=== PATIENT | male | born 1935 | race Caucasian/White ===

== ENCOUNTER → 2019-12-23 10:53 | Outpatient (CLI) | payer MEDICARE, SELFPAY ==
--- NOTE | 2019-12-23 10:54 | CA_ITS ---
APPROVED REPORT EXAM: Comprehensive 2D, Doppler, and color-flow Echocardiogram Corporate Relations Manager: Franchesca East RVT Ht: 5 ft 11 in Wt: 181lbs BSA: 2.02 BP: 116/74 mmHg Indications: PVC'S,PRE-OP HERNIA REPAIR 2D Dimensions LVOT 1.45 cm (M/F) 1.5-2.5 M-Mode Dimensions RVDd 2.41 cm (0.9-2.6) LVDd 4.79 cm (3.5-5.7) LVDs 3.42 cm (3.5-5.7) IVSd 1.81 cm (0.6-1.1) PWd 0.64 cm (0.6-1.1) EF (Teich) 55.00% FS 28.60% EDV (Teich) 107.00 mL ESV (Teich) 48.10 mL LV Diastology E/A Ratio 0.68 Aortic Valve LVOT Max 163.00 (70-110 cm/s) LVOT VTI 43.99 cm AO VTI 79.03 (18-25 cm) Mitral Valve MV A Velocity 87.00 (40-130 cm/s) MV PHT 123.00 ms Left Ventricle Left atrium is mildly enlarged, left ventricle is normal size, mild concentric left ventricular hypertrophy, visually estimated ejection fraction 50%, endocardial surfaces are poorly visualized, there appears to be hypokinesis involving the inferior wall. Grade 1 diastolic dysfunction seen with tissue Doppler evidence of raise left atrial pressure. Right Ventricle Right atrium right ventricular normal size and contractility. Aortic Valve Aortic valve is thickened and calcified, there is no aortic stenosis, there is mild aortic insufficiency. Mitral Valve Mitral valve leaflets are minimally thickened, there is mild mitral annular calcification present, mitral inflow velocities not suggestive of significant mitral stenosis, there is moderate mitral regurgitation. Tricuspid Valve Tricuspid valve grossly normal, there is mild tricuspid regurgitation, tricuspid and jet velocity is inadequate for calculation of the right ventricular systolic pressure. Pulmonic Valve Pulmonic valve is poorly visualized. Great Vessels Aortic root is normal size. Pericardium No significant pericardial effusion noted. Conclusion 1. Mildly enlarged left atrium, normal left ventricular size, mild concentric left ventricular hypertrophy, visually estimated ejection fraction 50% with segmental wall motion abnormality described above, grade 1 diastolic dysfunction seen with tissue Doppler evidence of raise left atrial pressure. 2. Thickened and calcified aortic valve without aortic stenosis, there is mild aortic insufficiency. 3. Thickened and calcified mitral valve without significant mitral inflow obstruction, there is moderate mitral regurgitation. 4. Mild tricuspid regurgitation 5. No significant pericardial effusion noted. Electronically signed by : Zechariah López, 12/24/2019 13:37:14
--- NOTE | 2019-12-23 10:54 | CA_ITS ---
APPROVED REPORT Exam: Pharmacologic Technologist: Julissa Jacome, Ht: 5 ft 11 in Wt: 180 lbs BSA: 2.02 m2 HR: 56 bpm BP: 126/66 mmHg Rhythm: NSR,EARLY REPOLARIZATION CHANGES Medical History Medications: TAMSULOSIN,,,,, Stress Test Details Test: LEXISCAN HR Resting HR: 59 bpm Max Heart Rate (APMHR): 137 bpm Max HR Achieved: 79 bpm Target HR (85% APMHR): 116 bpm % of APMHR: 57 Recovery HR: 72 bpm BP Resting BP: 126.0/66.0 mmHg Max BP: 143.0/54.0 mmHg Recovery BP: 143.0/54.0 mmHg ECG Resting ECG: NSR,EARLY REPOLARIZATION CHANGES Clinical Exercise duration: 04:01 min Highest Stage Achieved: Exercise capacity: 1.0 METs Stress ECG Conclusion DURING INFUSION OF LEXISCAN PATIENT HAD NO SYMPTOMS. OCCASIONAL PVC. NO SIGNIFICANT ST-T CHANGES. UNREMARKABLE LEXISCAN STRESS. MYOVIEW IMAGES REPORTED SEPARATELY. Test Summary REST . . . . . . . Sitting REST 11:44 . . 59 . 126/ 66 . . Stage 1 . . . . . . . Cardiolite injected Stage 1 01:00 . . 66 . . . . Stage 2 01:00 . . 72 . 133/ 52 . . Stage 3 01:00 . . 72 . 142/ 41 . . Stage 4 01:00 . . 72 . 139/ 43 . . Stage 4 01:01 . . 72 . 139/ 43 . Stop exercise at 04:01 RECOVERY 01:00 . . 71 . 143/ 54 . . RECOVERY 02:00 . . 69 . 143/ 54 . . RECOVERY 03:00 . . 66 . 143/ 63 . . RECOVERY 03:27 . . 66 . 141/ 66 . . Electronically signed by : Zechariah López, 12/24/2019 09:54:55
--- NOTE | 2019-12-23 10:54 | NM_ITS ---
APPROVED REPORT Exam: Nuclear Stress Test Indication: PRE-OP, VENTRICULAR PREMATURE DEPOLARIZATION Patient Location: Outpatient Stress Tech: Sammi Pfeiffer NM Tech:Nita Funk, ARRT, RT (R)(N) Ht: 5 ft 11 in Wt: 180 lbs HR: 56 bpm BP: 126/66 mmHg BSA: 2.02 m2 BMI: 25.1 History: PRE-OP, VENTRICULAR PREMATURE DEPOLARIZATION Procedure: Patient received a 0.4 mg of intravenous Lexiscan, resting heart rate 56 bpm, resting blood pressure 126/66 mmHg, with Lexiscan maximum heart rate achived was 98 bpm which is Less than 85 % of the maximum predicted heart rate and blood pressure was 133/52 mmHg. With Lexiscan, patient denied any complaint of chest pain. Electrocardiogram Resting electrocardiogram showed sinus rhythm, with Lexiscan there is less than 1.[address] segment depression noted from the baseline EKG. The EKG portion of the Lexiscan Myoview is nondiagnostic. Cardiac Stress and Resting SPECT Images: Cardiac Stress and Resting SPECT images were obtained using technetium 99m Myoview 32.0 mCi stress and 10.56 mCi at rest. Gated SPECT with analysis of segmental wall motion and calculation of the ejection fraction also done. Cardiac stress and resting SPECT images show partial reversible defect involving the lateral, inferior and posterior wall suggestive of mixed ischemia and scar, computer derived ejection fraction is 52% with moderate hypokinesis involving the lateral, inferior and posterior wall. Right ventricle is normal size and contractility. Conclusion: 1. The EKG portion of the Lexiscan Myoview is nondiagnostic. 2. Scintigraphic evidence of mixed ischemia and scar involving the lateral, inferior and posterior wall as described above, computer derived ejection fraction is 52% with segmental wall motion abnormality described above, right ventricle is normal size and contractility. 3. Abnormal Lexiscan Myoview study. Electronically signed by : Zechariah López, 12/24/2019 10:21:50
== END ==
PROVIDERS: PCP Family Medicine; Visit Provider Urology
DX: I49.3 Ventricular premature depolarization (principal); K46.9 Unspecified abdominal hernia without obstruction or gangrene; Z01.810 Encounter for preprocedural cardiovascular examination; Z87.81 Personal history of (healed) traumatic fracture
CPT/HCPCS: 78452; 93017; 93306; A9502; J2785

== ENCOUNTER 2020-01-04 08:25 | Day surgery (SDC) | payer MEDICARE, SELFPAY ==
[2020-01-04] VITALS (13 sets, daily range): BP systolic 124–172; BP diastolic 70–83; PULSE 49–72; RESP 16–18; TEMP 36.6; O2SAT 93–100; BMI 25.5
--- NOTE | 2020-01-04 | IR_ITS ---
APPROVED REPORT PROCEDURES Left heart catheterization Selective coronary angiogram Drug-eluting stent deployment to the distal left main artery extending the proximal dominant circumflex artery INDICATION Coronary artery disease, High risk abnormal Myoview Informed consent was obtained prior to the procedure. COMPLICATIONS None Estimated Blood Loss: less than 10 ml TECHNIQUE One percent lidocaine used to anesthetize the right anterior aspect of the wrist. The right radial artery was accessed via the Seldinger technique. A 6 Tajik sheath was placed in the right radial artery. 2.5 mg of verapamil, 800 mcg of nitroglycerin, 1mg Lidocaine and 5000 U Heparin were given through the arterial sheath. The trap catheter was also used to perform left heart catheterization, left ventriculogram and selective coronary angiogram. At the end of the diagnostic angiogram therapeutic heparin was administered giving a therapeutic ACT and and I [place] left guide catheter was used to intubate the left main artery. A Choice PT wire was used to traverse the stenosis in the circumflex artery and a 3.5 x 15 mm resolute radha stent was deployed at 20 jesusita reducing the stenosis. A 4 mm x 12 mm balloon was then deployed at 24 jesusita to post dilate. MILDRED-3 flow was present before and after the procedure. There was no angiographic encroachment upon the LAD therefore at the end of the procedure the apparatus was removed the sheath was removed good hemostasis was achieved using TR banding patient was transferred to the postop holding area stable condition ANGIOGRAPHIC RESULTS The left main artery Has a distal 30% stenosis The left anterior descending artery Has proximal 10 to 20% stenoses mid vessel 10 to 20% stenoses The circumflex artery Is a large dominant vessel and has an ostial 80% stenosis with mild mid vessel 30% stenoses The right coronary artery Is nondominant yet still a large vessel with proximal 30 to 40% stenoses distal 40 to 50% stenoses with additional 30 to 40% in the terminal large marginal branch The HUDSON ventriculogram reveals Not obtained The left ventricular end-diastolic pressure 10 mmHg IMPRESSION Coronary disease as described above Successful stenting of the distal left main artery extending into the proximal dominant circumflex artery severe disease reduced to 0% with one drug-eluting stent Persistent moderate stenosis in the large nondominant right coronary Normal left ventricular end-diastolic pressure PLAN 1. Brilinta and aspirin 2. LDL less than 55 3. Risk factor modification 4. Avoidance of tobacco products 5. Cardiac rehabilitation Electronically signed by : Charli Burns, 01/04/2020 11:05:23
[2020-01-04 09:14] LABS: Chloride 102 mmol/L (98-107); Potassium 4.7 mmoL/L (3.5-5.1); Sodium 138 mmol/L (136-145)
[2020-01-04 09:15] LABS: Basophils % 0.3 % (0.1-2.0); Eosinophils # 0.3 K/mm3 (0.0-0.4); Eosinophils % 6.4 % (0.1-12.0); Hematocrit 46.7 % (42.0-52.0); Hemoglobin 16.3 g/dL (14.1-18.0); Lymphocytes # 1.2 K/mm3 (0.7-4.5); Lymphocytes % 28.4 % (10-50); Mean Corpuscular HGB Conc 34.9 g/dL (31.8-35.4); Mean Corpuscular Hemoglobin 31.6 pg (27.0-31.2); Mean Corpuscular Volume 90.7 fl (80-94); Mean Platelet Volume 7.9 fl (7.4-10.4); Monocytes # 0.4 K/mm3 (0.1-1.0); Monocytes % 8.9 % (1.7-9.3); Neutrophils # 2.4 K/mm3 (1.8-7.8); Neutrophils % 55.9 % (37.0-80.0); Platelet Count 161 K/mm3 (142-424); Red Blood Count 5.15 M/mm3 (4.60-6.20); Red Cell Distribution Width 13.7 % (11.5-17.5); White Blood Count 4.3 K/mm3 (4.8-10.8)
[2020-01-04 09:17] LABS: Anion Gap 12.7 mEq/L (5-15); Blood Urea Nitrogen 16 mg/dl (9-20); Calcium 9.5 mg/dl (8.4-10.2); Carbon Dioxide 28 mmol/L (22.0-30.0); Creatinine Clearance Estimated 41 mL/min (50-200); Estimated Glomerular Filt Rate 41 ml/min (>60); GFR (African American) 50 ML/MIN (>60); Glucose 106 mg/dl (74-100)
--- NOTE | 2020-01-04 14:24 | HMH.PHACLD ---
Fdeerico Damian has received discharge medication counseling on the following medications: PATIENT CURRENTLY ON FLOMAX 0.4 MG HS. ADDING BRILINTA 90 MG BID, ASPIRIN 81 MG DAILY, ATORVASTATIN 40 MG HS, AND BISOPROLOL 5 MG DAILY. PATIENT ALREADY HAS BRILINTA 90 MG BID #60 AT BEDSIDE. RECEIVED FROM CLINIC PHARMACY.
[2020-04-12 09:35] LABS: CATHL Activated Clotting Time 315 SEC (74-125)
== END 2020-01-04 15:05 | disposition home or self-care (01) ==
LOC: CATHLAB 08:26
PROVIDERS: PCP Family Medicine; Visit Provider Internal Medicine
DX: I25.10 Atherosclerotic heart disease of native coronary artery without angina pectoris (principal); I49.3 Ventricular premature depolarization; Z79.899 Other long term (current) drug therapy; K40.20 Bilateral inguinal hernia, without obstruction or gangrene, not specified as recurrent
CPT/HCPCS: 80048; 85025; 85347; 92928; 93458; 99152; C1725; C1769; C1874; C9600; J1644; Q9967

== ENCOUNTER → 2020-01-19 09:19 | Outpatient (CLI) | payer MEDICARE, SELFPAY ==
[2020-01-20 13:32] LABS: CEA 3.3 ng/mL (0.0-4.7)
== END ==
PROVIDERS: Visit Provider Colon & Rectal Surgery
DX: C20 Malignant neoplasm of rectum (principal)
CPT/HCPCS: 36415; 82378

== ENCOUNTER → 2020-07-11 11:15 | Outpatient (CLI) | payer MEDICARE, SELFPAY ==
[2020-07-11 11:37] LABS: Basophils % 0.8 % (0.1-2.0); Eosinophils # 0.2 K/mm3 (0.0-0.4); Eosinophils % 4.1 % (0.1-12.0); Hematocrit 53.2 % (42.0-52.0); Hemoglobin 17.8 g/dL (14.1-18.0); Lymphocytes # 1.1 K/mm3 (0.7-4.5); Lymphocytes % 22.8 % (10-50); Mean Corpuscular HGB Conc 33.5 g/dL (31.8-35.4); Mean Corpuscular Hemoglobin 31.2 pg (27.0-31.2); Mean Corpuscular Volume 93.1 fl (80-94); Mean Platelet Volume 7.9 fl (7.4-10.4); Monocytes # 0.5 K/mm3 (0.1-1.0); Monocytes % 10.3 % (1.7-9.3); Neutrophils # 2.9 K/mm3 (1.8-7.8); Platelet Count 181 K/mm3 (142-424); Red Blood Count 5.71 M/mm3 (4.60-6.20); Red Cell Distribution Width 13.7 % (11.5-17.5); White Blood Count 4.7 K/mm3 (4.8-10.8)
[2020-07-11 12:41] LABS: Anion Gap 14.3 mEq/L (5-15); Blood Urea Nitrogen 20 mg/dl (9-20); Calcium 10.9 mg/dl (8.4-10.2); Carbon Dioxide 31 mmol/L (22.0-30.0); Chloride 101 mmol/L (98-107); Estimated Glomerular Filt Rate 45 ml/min (>60); GFR (African American) 54 ML/MIN (>60); Glucose 113 mg/dl (74-100); Potassium 5.3 mmoL/L (3.5-5.1); Sodium 141 mmol/L (136-145)
== END ==
PROVIDERS: Visit Provider Physician Assistant
DX: E78.5 Hyperlipidemia, unspecified (principal); I10 Essential (primary) hypertension; I25.10 Atherosclerotic heart disease of native coronary artery without angina pectoris; I49.3 Ventricular premature depolarization; K46.9 Unspecified abdominal hernia without obstruction or gangrene; Z01.810 Encounter for preprocedural cardiovascular examination; Z87.81 Personal history of (healed) traumatic fracture
CPT/HCPCS: 36415; 80048; 85025

== ENCOUNTER → 2020-07-25 12:02 | Outpatient (CLI) | payer MEDICARE, SELFPAY ==
[2020-07-25 12:27] LABS: Basophils % 0.7 % (0.1-2.0); Eosinophils # 0.2 K/mm3 (0.0-0.4); Eosinophils % 4.1 % (0.1-12.0); Hematocrit 51.5 % (42.0-52.0); Hemoglobin 17.1 g/dL (14.1-18.0); Lymphocytes # 1.4 K/mm3 (0.7-4.5); Lymphocytes % 27.4 % (10-50); Mean Corpuscular HGB Conc 33.3 g/dL (31.8-35.4); Mean Corpuscular Hemoglobin 30.7 pg (27.0-31.2); Mean Corpuscular Volume 92.2 fl (80-94); Mean Platelet Volume 8.2 fl (7.4-10.4); Monocytes # 0.4 K/mm3 (0.1-1.0); Monocytes % 8.2 % (1.7-9.3); Neutrophils # 2.9 K/mm3 (1.8-7.8); Neutrophils % 59.6 % (37.0-80.0); Platelet Count 215 K/mm3 (142-424); Red Blood Count 5.58 M/mm3 (4.60-6.20); Red Cell Distribution Width 13.8 % (11.5-17.5); White Blood Count 4.9 K/mm3 (4.8-10.8)
[2020-07-25 12:51] LABS: Chloride 106 mmol/L (98-107); Potassium 5.3 mmoL/L (3.5-5.1); Sodium 142 mmol/L (136-145)
[2020-07-25 12:54] LABS: Alanine Aminotransferase 26 U/L (12-78); Albumin Level 4.7 g/dl (3.5-5.0); Albumin/Globulin Ratio 1.5 (1.1-1.8); Alkaline Phosphatase 53 U/L (38-126); Anion Gap 10.3 mEq/L (5-15); Aspartate Amino Transferase 30 U/L (17-59); Bilirubin,Total 1.5 mg/dl (0.2-1.3); Blood Urea Nitrogen 29 mg/dl (9-20); Calcium 10.3 mg/dl (8.4-10.2); Carbon Dioxide 31 mmol/L (22.0-30.0); Estimated Glomerular Filt Rate 39 ml/min (>60); GFR (African American) 47 ML/MIN (>60); Globulin 3.2 g/dL (1.3-3.2); Glucose 88 mg/dl (74-100); Total Protein,Serum 7.9 g/dl (6.3-8.2)
[2020-07-25 13:14] LABS: Coronavirus 19 IgG Antibody Positive (Negative); Coronavirus 19 IgM Antibody Negative (Negative)
== END ==
PROVIDERS: Visit Provider Surgery
DX: K46.9 Unspecified abdominal hernia without obstruction or gangrene (principal); E78.5 Hyperlipidemia, unspecified; Z01.812 Encounter for preprocedural laboratory examination; Z20.822 Contact with and (suspected) exposure to COVID-19; Z86.16 Personal history of COVID-19
CPT/HCPCS: 36415; 80053; 85025; 86328

== ENCOUNTER 2020-07-27 06:10 | Day surgery (SDC) | payer MEDICARE, SELFPAY ==
[2020-07-27] VITALS (15 sets, daily range): BP systolic 149–179; BP diastolic 67–83; PULSE 59–81; RESP 16–20; TEMP 36.1–43; O2SAT 95–100; BMI 25.1
--- NOTE | 2020-07-27 09:40 | P.PN_ITS ---
[facility] Anesthesia Checklist - Patient Identification Patient Identification: Arm Band, Verbal (Name & ) - Structural Data Admitted From: Home Planned Operative Procedure/s: bilateral IH Repair, Umbilical Hernia Repair Consent for Planned Operative Procedure(s) Verified: Yes Verified Documents: Surgical Consent - NPO Status Verified Time NPO: 00:00 - Chart Verification Results Verified: None, CBC, BMP - Additional verifications Anesthesia Reactions: No Hx Blood Transfusions: No Blood Transfusion Reaction: No - Anesthesia Plan Anesthesia Risk discussed: Yes Anesthesia Plan: Verified ASA Class: III Anesthesia Type: General [facility] History I have reviewed the patient's past medical history: Yes Medical History: Reports:: Cancer (colon), Coronary Artery Disease, Hyperlipidemia, Hypertension Denies:: Diabetes Mellitus Type 1, Diabetes Mellitus Type 2, Internal Pacemaker, MRSA, Seizures *Have you ever received a pneumonia vaccine?: No *Have you received a flu vaccine this season?: Yes Other Medical History: Reports: Arthritis. Denies: Blood Transfusion Reaction Anesthesia experience/problems:: none Laterality Cases: Bilateral: Other Other Surgeries: Yes: Cancer Surgery, Cardiac Catheterization, Colonoscopy, Colon Resection, Coronary Stent. No: Pacemaker Amputation: No Fractures: No - *Social History Last grade of school completed: High school graduate Smoking Status: Never smoker Alcohol Intake: current Alcohol Intake Frequency:: 0-2 drinks per day Substance Use Type: denies use *Occupational Status:: retired Housing: house Household Members: none *Travel in the last 8 weeks: None Family Hx:: Cancer
--- NOTE | 2020-07-27 10:40 | HMH.OPNOTE ---
Date of procedure: 07/27/20 Pre-op Diagnosis:: BiLateral inguinal hernias Umbilical hernia Post-op Diagnosis:: Same Procedure performed:: 1. Laparoscopic bilateral inguinal hernia repair with placement of large sized Bard 3D max mesh bilaterally 2. Open repair of umbilical hernia with placement of small Ventralex ST mesh Surgeon:: William Molina MD WRAP KNITTING MACHINE OPERATOR:: Other Anesthesia: GETA Estimated blood loss (mL): 20 Clinical Note:: Patient is an 85-year-old who presents for hernia surgery. I had originally seen him in November. Patient lives in [facility]. 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 He lives alone. He has had symptomatic bilateral inguinal hernias. Of note, the patient did undergo a laparoscopic low anterior resection by Janice Tucker for colon cancer in 2019. He did have problems with urinary retention. I had him see Dr. Delong who has placed him on tamsulosin and feel he is low risk for urinary retention. I did have him see cardiology. Dr. Burns performed heart catheterization with stenting in early December and placed him on dual antiplatelet therapy. Patient had been anxious to proceed with surgery. Cardiology deemed him an increased risk to discontinue his antiplatelet therapy early but felt that he is acceptable for surgery. I had discussed with the patient potentially with holding surgery until he was lower risk for discontinuation of dual antiplatelet therapy and he agreed to wait. Cardiology advised with holding Plavix for 5 days. Patient discontinued 4 days prior to surgery. He was counseled regarding increased risk for bleeding and wished to proceed. Given the nature of the hernias bilaterally with an umbilical hernia plan was made for attempt at laparoscopic repair. Operative findings:: He had bilateral moderately large indirect hernias with densely adherent thickened hernia sac. Operative note:: Consent was obtained and patient was taken to the operating room. He was given preoperative intravenous antibiotics. In the operating room he was placed in a supine position. General anesthesia was induced via endotracheal tube. Abdomen and perineal area were prepped and draped in the standard surgical fashion. Subumbilical skin incision was made. Dissection was carried down to the anterior rectus fascia. Fascia was incised to the right of the linea alba. Rectus muscles were retracted laterally. Preperitoneal space was entered. Dissecting balloon trocar was inserted. Preperitoneal space was dissected out. Interestingly this only dissected the right side. Dissecting balloon trocar was removed and replaced with the structural balloon trocar. CO2 pneumo preperitoneum was evacuated. A couple 5 mm trochars were inserted in the mid lower abdomen. Dissection was carried out to the right side. The Ike's ligament was easily identified initially. Inferior epigastric vessels were easily identified. Dissection was carried out laterally. The cord structures were identified and dissected free. There was a large densely adherent hernia sac to the cord and very prolonged dissection was carried out reducing this and dissecting the hernia sac from the cord using mostly blunt dissection. This was a rather prolonged portion of the procedure. It was able to be reduced to the normal anatomic position. Please note that there also large herniated fat as cord lipomas and this was dissected free and reduced as well. Once dissection was carried out on the right dissection was turned to the left side. This side was initially more difficult to discern the anatomic landmarks due to the fact that it did not dissected out well with the balloon. However Ike's ligament was easily identified. The inferior epigastric vessels were then identified and were tented somewhat posteriorly but they were able to be dissected out. The cord structures were then identified in a lateral preperitoneal space was dissected out. Cord structures were dis
--- NOTE | 2020-07-27 10:49 | HMH.ANESI ---
[facility] Anesthesia Record Part I Intake, IV Amount: 2,000 Estimated blood loss (mL): 10 Urine output (mL): 400 Blood Products used (#): none Blood Pressure: 170/67 SaO2: 99 Pulse Rate: 76 Respiratory Rate: 20 Temperature: 97.2 F Patient is:: Awake Stable to PACU at:: 10:51
--- NOTE | 2020-07-27 12:50 | PC.NURSE ---
PT DENIES NEED FOR ANYTHING FOR NAUSEA / VOMITING.
--- NOTE | 2020-07-27 13:58 | HMH.ANESII ---
[facility] Anesthesia Record Part II Discharge Time: 11:22 Destination: Surgical Day Care (OP Surgery) PACU nurse assessment reviewed?: Yes Patient Condition:: Good Anesthesia Complications:: None Swallowing reflex intact?: Yes Cyanosis?: No Blood Pressure: 161/83 Pulse Rate: 71 Temperature: 97.2 F Mental Status: Alert & Oriented Pain level:: 0 Nausea and/or vomitting:: None Intake, IV Amount: 0
== END 2020-07-27 12:50 | disposition home or self-care (01) ==
LOC: OR 06:13
PROVIDERS: PCP Family Medicine; Visit Provider Surgery
PROC: 0YQ64ZZ Repair Left Inguinal Region, Percutaneous Endoscopic Approach (ICD-10-PCS; principal; 2020-07-27 07:30)
DX: K40.20 Bilateral inguinal hernia, without obstruction or gangrene, not specified as recurrent; K42.9 Umbilical hernia without obstruction or gangrene; K66.0 Peritoneal adhesions (postprocedural) (postinfection); D17.79 Benign lipomatous neoplasm of other sites; Z85.038 Personal history of other malignant neoplasm of large intestine; I25.10 Atherosclerotic heart disease of native coronary artery without angina pectoris; E78.5 Hyperlipidemia, unspecified; I10 Essential (primary) hypertension; M19.90 Unspecified osteoarthritis, unspecified site; Z90.49 Acquired absence of other specified parts of digestive tract; Z95.818 Presence of other cardiac implants and grafts; N39.0 Urinary tract infection, site not specified; Z80.9 Family history of malignant neoplasm, unspecified
CPT/HCPCS: 49585; 49650; 87086; 96374; C1781

== ENCOUNTER → 2020-09-19 10:19 | Outpatient (CLI) | payer MEDICARE, SELFPAY ==
[2020-09-20 13:39] LABS: CEA 3.4 ng/mL (0.0-4.7)
== END ==
PROVIDERS: Visit Provider Colon & Rectal Surgery
DX: C20 Malignant neoplasm of rectum (principal)
CPT/HCPCS: 36415; 82378

== ENCOUNTER → 2021-02-01 10:31 | Outpatient (CLI) | payer MEDICARE, SELFPAY ==
[2021-02-01 11:00] LABS: Basophils % 0.8 % (0.1-2.0); Eosinophils # 0.2 K/mm3 (0.0-0.4); Eosinophils % 4.2 % (0.1-12.0); Hematocrit 49.4 % (42.0-52.0); Hemoglobin 16.7 g/dL (14.1-18.0); Lymphocytes # 1.2 K/mm3 (0.7-4.5); Lymphocytes % 28.4 % (10-50); Mean Corpuscular HGB Conc 33.8 g/dL (31.8-35.4); Mean Corpuscular Volume 91.7 fl (80-94); Monocytes # 0.4 K/mm3 (0.1-1.0); Monocytes % 10.2 % (1.7-9.3); Neutrophils # 2.4 K/mm3 (1.8-7.8); Neutrophils % 56.6 % (37.0-80.0); Platelet Count 158 K/mm3 (142-424); Red Blood Count 5.39 M/mm3 (4.60-6.20); Red Cell Distribution Width 13.7 % (11.5-17.5); White Blood Count 4.3 K/mm3 (4.8-10.8)
[2021-02-01 11:44] LABS: Alanine Aminotransferase 37 U/L (12-78); Albumin Level 4.5 g/dl (3.5-5.0); Alkaline Phosphatase 66 U/L (38-126); Aspartate Amino Transferase 45 U/L (17-59); Bilirubin,Direct 0.4 mg/dl (0.0-0.4); Bilirubin,Indirect 1.9 mg/dL (0.0-0.9); Bilirubin,Total 2.3 mg/dl (0.2-1.3); Bilirubin,Unconjugated 1.9 mg/dL (0.0-1.1); Blood Urea Nitrogen 12 mg/dl (9-20); Calcium 9.7 mg/dl (8.4-10.2); Carbon Dioxide 29 mmol/L (22.0-30.0); Chloride 102 mmol/L (98-107); Chol/HDL Ratio 5.5 (1-3.5); Cholesterol 187 mg/dl (140-200); Estimated Glomerular Filt Rate 45 ml/min (>60); GFR (African American) 54 ML/MIN (>60); Glucose 103 mg/dl (74-100); HDL Cholesterol 34 mg/dl (40-60); Sodium 141 mmol/L (136-145); Total Protein,Serum 7.4 g/dl (6.3-8.2); Triglycerides 122 mg/dl (30-150); VLDL Cholesterol 24 mg/dL (0-40)
[2021-02-01 11:55] LABS: Direct LDL Cholesterol 134.75 mg/dL (100-129)
[2021-02-01 12:01] LABS: Free T4 (Free Thyroxine) 1.13 ng/dl (0.78-2.19)
[2021-02-01 12:14] LABS: Thyroid Stimulating Hormone 2.97 uIU/mL (0.465-4.68)
== END ==
PROVIDERS: Visit Provider Urology
DX: E78.2 Mixed hyperlipidemia (principal); I10 Essential (primary) hypertension; I25.10 Atherosclerotic heart disease of native coronary artery without angina pectoris; I48.91 Unspecified atrial fibrillation; I49.3 Ventricular premature depolarization; K46.9 Unspecified abdominal hernia without obstruction or gangrene; Z87.81 Personal history of (healed) traumatic fracture
CPT/HCPCS: 36415; 80048; 80061; 80076; 84439; 84443; 85025

== ENCOUNTER → 2021-02-03 09:53 | Outpatient (CLI) | payer MEDICARE, SELFPAY ==
--- NOTE | 2021-02-03 09:54 | CA_ITS ---
APPROVED REPORT EXAM: Comprehensive 2D, Doppler, and color-flow Echocardiogram Opener Verifier Packer Customs: Franchesca East RVT Ht: 5 ft 11 in Wt: 181lbs BSA: 2.02 BP: 170/86 mmHg Indications: A-FIB,CAD,PVC,HTN,HLD TDS 2D Dimensions LVOT 1.99 cm (M/F) 1.5-2.5 LA Volume 101.90 mL LA Volume Index 50.44 mL/m2 (M/F) 16-34 M-Mode Dimensions RVDd 2.33 cm (0.9-2.6) LA Diam 5.36 cm (1.9-4.0) LVDd 5.22 cm (3.5-5.7) Ao Diam 3.13 cm (2.0-3.7) LVDs 3.96 cm (3.5-5.7) IVSd 1.08 cm (0.6-1.1) PWd 0.99 cm (0.6-1.1) EF (Teich) 47.70% FS 24.10% EDV (Teich) 130.70 mL TAPSE 2.00 (<1.7) ESV (Teich) 68.30 mL LV Diastology E Decel Time 463.00 (160-240 msec) MED E' 5.40 (< 7 cm/sec) E'/MED E' Ratio 26.37 (>14) LAT E' 9.30 (<10 cm/sec) E/LAT E' Ratio 15.31 (>14) Aortic Valve LVOT Max 81.00 (70-110 cm/s) LVOT VTI 19.36 cm AoV Peak Tadeo. 204.00 (50-130 cm/s) AI PHT 892.00 ms AO Peak GR. 16.60 mmHg AO Mean GR. 8.90 (<5 mmHg) AO VTI 46.81 (18-25 cm) CHANTALE (VTI) 1.29 (2.5-4.5 cm2) Mitral Valve MV E Max Tadeo. 142.00 (40-130 cm/s) MV Decel. Time 463.00 (160-240 ms) MV PHT 136.00 ms Pulmonary Valve PV Peak Velocity 76.00 (50-150 cm/s) Tricuspid Valve TR P. Velocity 317.00 cm/s RAP Estimate 10.00 mmHg RVSP 50.20 mmHg Left Ventricle Technically difficult study because of the patient fact in poor acoustic windows. Left atrium is moderately enlarged, left ventricle is normal size, mild concentric left ventricular hypertrophy, visually estimated ejection fraction 45% with no regional wall motion abnormality, endocardial surfaces are poorly visualized, diastolic parameters are inconclusive. Right Ventricle Right atrium is moderately enlarged and right ventricle mildly enlarged with normal contractility. Aortic Valve Aortic valve is minimally thickened and fibrosed, there is no significant aortic insufficiency, there is mild aortic insufficiency. Mitral Valve Mitral valve leaflets are minimally thickened, there is mitral stenosis present, which is difficult to quantify from this study it is likely in the moderate range. If clinically indicated repeat study with better Doppler technique is recommended. Tricuspid Valve Tricuspid valve is grossly normal, there is mild tricuspid regurgitation, calculated right ventricular systolic pressure is 45 mmHg. Pulmonic Valve Pulmonic valve is poorly visualized. Great Vessels Aortic root is normal size. Inferior vena cava is mildly dilated without significant inspiratory collapse. Pericardium No significant pericardial effusion noted. Conclusion 1. Moderate biatrial alignment, normal left ventricular size, mild concentric left ventricular hypertrophy, visually estimated ejection fraction 45% with no regional wall motion abnormality, diastolic parameters are inconclusive. 2. Mildly enlarged right ventricle with normal contractility. 3. Thickened and calcified aortic valve without significant aortic stenosis, there is mild aortic insufficiency. 4. Abnormal mitral valve as described above there is mitral stenosis present which is difficult to quantify in the study, it is at least a moderate range, if clinically indicated repeat study with better Doppler technique is recommended. 5. Mild tricuspid regurgitation, calculated right ventricular systolic pressure is 44 mmHg. Inferior vena cava is dilated without significant inspiratory collapse with 6. No significant pericardial effusion noted. Electronically sign
== END ==
PROVIDERS: PCP Family Medicine; Visit Provider Urology
DX: E78.2 Mixed hyperlipidemia (principal); I10 Essential (primary) hypertension; I25.10 Atherosclerotic heart disease of native coronary artery without angina pectoris; I48.91 Unspecified atrial fibrillation; I49.3 Ventricular premature depolarization; K46.9 Unspecified abdominal hernia without obstruction or gangrene; Z87.81 Personal history of (healed) traumatic fracture
CPT/HCPCS: 93306

== ENCOUNTER → 2021-04-26 09:39 | Outpatient (CLI) | payer MEDICARE, SELFPAY ==
--- NOTE | 2021-04-26 09:40 | CA_ITS ---
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: Alberta Richmond, PONCE, RVS Ht: 5 ft 11 in Wt: 1lbs BSA: 0.23 BP: 170/86 mmHg Indications: Mitral stenosis, A-fib, CAD, HTN 2D Dimensions Aortic Root 3.25 cm LA Volume 103.20 mL Left Atrium 4.47 cm LA Volume Index 469.10 mL/m2 (M/F) 16-34 LVOT 2.07 cm (M/F) 1.5-2.5 M-Mode Dimensions RVDd 3.61 cm (0.9-2.6) LVDd 5.17 cm (3.5-5.7) LVDs 3.86 cm (3.5-5.7) IVSd 0.95 cm (0.6-1.1) PWd 1.06 cm (0.6-1.1) EF (Teich) 49.70% EPSs 0.72 cm FS 25.30% EDV (Teich) 127.80 mL ESV (Teich) 64.30 mL LV Diastology E Decel Time 275.00 (160-240 msec) E/A Ratio 2.86 MED E' 6.20 (< 7 cm/sec) MED A' 3.30 cm/s E'/MED E' Ratio 27.06 (>14) LAT E' 8.40 (<10 cm/sec) LAT A' 5.00 cm/s E/LAT E' Ratio 19.98 (>14) Aortic Valve LVOT Max 65.00 (70-110 cm/s) LVOT VTI 15.20 cm AoV Peak Tadeo. 192.00 (50-130 cm/s) AI PHT 767.00 ms AO Peak GR. 14.70 mmHg AO Mean GR. 7.30 (<5 mmHg) AO VTI 46.75 (18-25 cm) CHANTALE (VTI) 1.09 (2.5-4.5 cm2) Mitral Valve MV A Velocity 59.00 (40-130 cm/s) E/A Ratio 2.86 MV Decel. Time 275.00 (160-240 ms) MV Mean Gr. 3.10 (<2mmHg) MV PHT 114.00 ms Tricuspid Valve TR P. Velocity 303.00 cm/s RAP Estimate 10.00 mmHg RVSP 46.80 mmHg Left Ventricle Left atrium is mildly enlarged, left ventricle is normal size, mild concentric left ventricular hypertrophy, visually estimated ejection fraction 55% with no obvious regional wall motion abnormality. Right Ventricle Right atrium and right ventricle mildly enlarged with normal contractility. Aortic Valve Aortic valve is thickened and calcified without Doppler evidence of aortic stenosis, there is mild aortic insufficiency. Mitral Valve Mitral valve leaflets are minimally thickened, there is restriction in the leaflet mobility, the mean gradient across mitral valve is 3 mmHg, valve area calculated to be 2.0 cm??? which represents mild mitral stenosis, there is mild mitral regurgitation. Tricuspid Valve Tricuspid grossly normal, there is mild tricuspid regurgitation, calculated right ventricular systolic pressure is 46 mmHg. Pulmonic Valve Pulmonic valve is poorly visualized. Great Vessels Aortic root is normal size. Inferior vena cava is mildly dilated with normal inspiratory collapse. Pericardium No significant pericardial effusion noted. Conclusion 1. Biatrial enlargement, normal left ventricular size, mild concentric left ventricular hypertrophy, visually estimated ejection fraction 55% with no regional wall motion abnormality, diastolic parameters are inconclusive. 2. Thickened and calcified aortic valve without aortic stenosis, there is mild aortic insufficiency. 3. Abnormal mitral valve with valve area of 2.0 cm represents mild mitral stenosis, there is mild mitral regurgitation. 4. Mild tricuspid regurgitation, calculated right ventricular systolic pressure 46 mmHg. 5. Inferior vena cava is mildly dilated with normal inspiratory collapse. 6. No significant pericardial effusion noted. Electronically signed by : Zechariah López MD 05/01/2021 21:55:24
== END ==
PROVIDERS: PCP Family Medicine; Visit Provider Nurse Practitioner Family
DX: I05.1 Rheumatic mitral insufficiency (principal)
CPT/HCPCS: 93308